=== PATIENT | female | born 2000 | race Caucasian/White ===

== ENCOUNTER 2020-11-07 21:22 | Emergency (ER) | payer OTHER, MEDICAID, SELFPAY ==
[2020-11-07 21:43] VITALS: BP 130/86; PULSE 80; RESP 14; TEMP 36.8; O2SAT 97; BMI 23.3
--- NOTE | 2020-11-07 21:56 | ED_ITS ---
HPI - General Adult General Chief complaint: Urogenital-Female Stated complaint: rt sided kidney pain Time Seen by Provider: 11/07/20 21:34 Source: patient Mode of arrival: Ambulatory Limitations: no limitations History of Present Illness HPI narrative: Patient is a 20-year-old female here for evaluation of right-si ded flank pain. States the symptoms started approximately 10-14 days ago but has been worsening over the past week. She denies any urinary symptoms. No history of kidney stone. No vaginal bleeding. No change in bowel habits. No rashes over the area. Today she did notice that she was getting right-sided abdominal pain and right lower quadrant pain does well. Some nausea but no vomiting. Has not tried anything for symptoms prior to arrival. No prior abdominal surgeries. She is not on control. She does state that it hurts to touch her right side/right flank also hurts to raise her right leg in the air. Has had a decreased appetite as well. Related Data Previous Rx's Medication Instructions Recorded norethindrone ac-eth estradiol 1 tab PO QDAY #1 pac 06/11/17 [08/07 ()] cephalexin 500 mg PO BID 7 Days #14 cap 11/08/20 Allergies Allergy/AdvReac Type Severity Reaction Status Date / Time morphine [MORPHINE] Allergy Unknown Unverified 10/27/17 12:28 Review of Systems Constitutional Constitutional: Denies fatigue, Denies fever(s), Denies headache(s) and Reports poor appetite Eyes Eyes: Denies change in vision ENT Ears, Nose, Mouth, and Throat: Denies headache(s) and Denies sore throat Cardiovascular Cardiovascular: Denies chest pain and Denies dyspnea Respiratory Respiratory: Denies dyspnea Gastrointestinal Gastrointestinal: Reports abdominal pain, Denies change in bowel habits, Reports nausea and Denies vomiting Genitourinary Genitourinary: Denies dysuria Genitourinary: Denies dysuria and Denies vaginal discharge Musculoskeletal Musculoskeletal: Denies arthralgias, Reports back pain (Right flank) and Denies myalgias Integumentary/Breasts Skin/Breast: Denies lesions and Denies rash Neurologic Neurologic: Denies behavioral changes and Denies headache(s) Psychiatric Psychiatric: Denies behavioral changes Endocrine Endocrine: Denies fatigue Hematologic/Lymphatic On Anticoagulants: No Allergic/Immunologic Allergic/Immunologic: Denies urticaria Patient History Medical History Healthy adult Social History Smoking Status: Never smoker Smoking Status: Never smoker Substance Use Type: marijuana Exam Initial Vital Signs Initial Vital Signs: Vital Signs Temperature 98.2 F 11/07/20 21:43 Pulse Rate 80 11/07/20 21:43 Respiratory Rate 14 11/07/20 21:43 Blood Pressure 130/86 11/07/20 21:43 Pulse Oximetry 97 11/07/20 21:43 Const General: cooperative, comfortable and well developed Limitations: mental status not altered HENMT Head: normal to inspection and normocephalic Resp Effort & Inspection: normal respiratory effort Auscultation: clear to auscultation bilaterally Cardio Rate: regular rate Rhythm: regular rhythm GI Inspection: non-distended Palpation: soft and tender (Right upper quadrant, right side and right lower quadrant) Other: Right adnexa tenderness Back/Spine/Pelvis Back: CVA tenderness right Skin Lesions: no lesions Rashes: no rashes Neuro General: patient alert, patient awake and patient oriented x3 Cognition: normal cognition Speech: speech normal Extrem General: normal to inspection and capillary refill normal Psych Appearance: grossly normal and well kempt Course Orders Ordered: ED Orders 11/07/20 21:52 Urine Culture Stat Urine Microscopic Stat 11/07/20 21:57 CT abdomen pelvis w con Stat 11/07/20 22:10 Complete Blood Count AUTO DIFF Stat Comprehensive Metabolic Panel Stat Lipase Stat 11/07/20 23:10 US pelvic complete Stat Discontinued Medications Hydrocodone Bitart/Acetaminophen (Hydrocodone/Acet 5/325 Tablet) 1 tab PO NOW ONE Stop: 11/07/20 23:11 Last Admin: 11/07/20 23:20 Dose: 1 tab Documented by: BRITTNEY Cephalexin HCl (Cephalexin 250 Mg Capsule) 500 mg PO NOW ONE Stop: 11/08/20 00:57 Last Admin: 11/08/20 01:00 Dose: 500 mg Documented by: BRITTNEY Sodium Chloride (Normal Saline 0.9%) 1,000 mls @ 1,000 mls/hr IV BOLUS ONE Stop: 11/07/20 22:55 Last Infusion: 11/07/20 23:20 Dose: 0 mls/hr Documented by: Admin: 11/07/20 22:16 Dose: 1,000 mls/hr Documented by: ROBERT Ketorolac Tromethamine (Ketorolac 60 Mg/2 Ml Vial) 30 mg IV NOW ONE Stop: 11/07/20 21:57 Last Admin: 11/07/20 22:17 Dose: 30 mg Documented by: ROBERT Vital Signs Vital signs: Vital Signs - 8 hr 11/07/20 21:43 Temperature 98.2 F Pulse Rate 80 Respiratory Rate 14 Blood Pressure 130/86 Pulse Oximetry 97 Medical Decision Making Lab Data Lab results reviewed: Yes I reviewed the patient's lab results. Result diagrams: 11/07/20 22:10 11/07/20 22:10 Labs: Lab Results 11/07/20 11/07/20 11/07/20 Range/Units 21:52 22:10 22:10 WBC 9.3 (4.5-11.0) X10^3/uL RBC 4.34 (4.0-5.2) X10^6/uL Hgb 12.7 (12.0-16.0) g/dL Hct 36.4 (36-46) % MCV 83.8 (80-100) fL MCH 29.3 (26-34) PG MCHC 34.9 (30-36) % RDW 13.6 (11.6-14.8) % Plt Count 250 (150-400) X10^3/uL Neut % (Auto) 61.2 (50-75) % Lymph % (Auto) 30.5 (25-40) % [place] % (Auto) 7.0 (3-14) % Eos % (Auto) 0.3 L (2-4) % Baso % (Auto) 1.0 (0-2) % Neut # (Auto) 5700 (5693-3142) /uL Lymph # (Auto) 2800 (8241-2642) /uL [place] # (Auto) 700 (0-900) /uL Eos # (Auto) 0 (0-450) /uL Baso # (Auto) 100 (0-100) /uL Sodium 140 (137-145) mmol/L Potassium 3.7 (3.4-5.1) mmol/L Chloride 105 (98-107) mmol/L Carbon Dioxide 26 (22-32) mmol/L BUN 11 (7-17) mg/dL Creatinine 0.54 (0.52-1.04) mg/dL Estimated GFR > 60.0 (>60) mL/min BUN/Creatinine Ratio 20.4 (6-22) Glucose 91 (70-100) mg/dL Calcium 9.3 (8.4-10.2) mg/dL Total Bilirubin 0.3 (0.2-1.3) mg/dL AST 22 (14-36) IU/L ALT 17 (<35) IU/L Alkaline Phosphatase 33 L (38-126) U/L Total Protein 7.2 (6.3-8.2) g/dL Albumin 4.6 (3.5-5.0) g/dL Globulin 2.6 (1.7-4.1) g/dL Albumin/Globulin Ratio 1.8 (1.0-2.8) Lipase 64 (23-300) U/L Urine RBC None seen (0-5/HPF) Urine WBC 10-30/hpf H (0-5/HPF) Ur Squamous Epith Cells 1-5 /hpf (0-5/HPF) Urine Bacteria Few (2-10) H (None) Ur Culture Indicated? Specimen cultured Point of Care Testing Test Results Negative Urine Dip Bedside Urine Glucose Negative Bedside Urine Bilirubin - Negative Bedside Urine Ketone - Negative Urine Specific [place] 1.015 Bedside Urine Occult Blood - Negative Bedside Urine pH 7.5 Bedside Urine Protein +/- 15 Bedside Urine Urobilinogen - Negative Bedside Urine Nitrite - Negative Bedside Urine Leukocytes + 70 Esterase Point of care testing: Point of Care Testing Test Results Negative Urine Dip Bedside Urine Glucose Negative Bedside Urine Bilirubin - Negative Bedside Urine Ketone - Negative Urine Specific [place] 1.015 Bedside Urine Occult Blood - Negative Bedside Urine pH 7.5 Bedside Urine Protein +/- 15 Bedside Urine Urobilinogen - Negative Bedside Urine Nitrite - Negative Bedside Urine Leukocytes + [address] scan - abdomen/pelvis: Radiologist's Impression: Complex 3.7 cm cystic abnormality right ovary with moderate fluid in the pelvis US - ENVIRONMENTAL SAMPLING TECHNICIAN: Radiologist's Impression: Free fluid in pelvis, otherwise unremarkable MDM Narrative Medical decision making narrative: Patient's urinalysis does have bacteria and leukocyte esterase which is somewhat concerning for urinary tract infection. She does not have any dysuria. She is afebrile. Her labs are unremarkable. CT scan of the abdomen shows a normal appendix but does have a complex 3.7 cm cystic abnormality in her right adnexa. A follow-up ultrasound was ordered which stated that her right ovary has a dominant follicle at is 1.9 cm however no cystic structure is seen. There is no evidence of ovarian torsion. She does have free fluid in the pelvis. A test is negative. She has no changes in skin over the area of discomfort. I do feel given her presentation that pyelonephritis is unlikely. There is no stranding noticed around the kidneys on the CT scan. Given the fact that there is no other explanation for her symptoms other than potentially urinary tract infection in do feel treating with antibiotics despite her lack of symptoms is warranted. A urine culture was pending at the time of discharge and she was instructed that we would contact her if we need to change antibiotics. She was given 1st dose here in the emergency department. A prescription for antibiotics was electronically transmitted to the pharmacy of her choice. She was given return precautions and follow-up instructions. She expressed understanding and agreement. Discharge Plan Departure Patient Disposition: Home Clinical Impression: Urinary tract infection, Acute right flank pain, Abdominal pain Instructions: DI for Urinary Tract Infection (UTI) Activity Restrictions/Additional Instructions: Take the antibiotics as directed. Recommend you contact your primary provider for a follow-up. Return to the emergency department for any new or worsening symptoms Prescriptions: New cephalexin 500 mg capsule 500 mg PO BID 7 Days Qty: 14 RF: 0 No Action norethindrone ac-eth estradiol [08/07 (21)] 1 MG/20 MCG tablet 1 tab PO QDAY Qty: 1 RF: 11 Referrals: Estela Coronado FNP-C [Primary Care Provider] -
--- NOTE | 2020-11-07 21:57 | DI.CT.S_ITS ---
PROCEDURE: CT ABDOMEN PELVIS W CON INDICATIONS: Right-sided abdominal pain to include flank and RLQ TECHNIQUE: After the administration of intravenous contrast, 5 mm thick sections acquired from the diaphragm to the symphysis. 5 mm coronal and sagittal reformats were acquired. For radiation dose reduction, the following was used: automated exposure control, adjustment of mA and/or kV according to patient size. COMPARISON: [facility], , US PELVIC COMPLETE, 11/07/2020, 23:45. FINDINGS: Lower thorax: The lung bases are clear. Heart size normal. No hiatal hernia. Liver: Normal in size and attenuation. No contour deformity present. Biliary system: No calcified cholelithiasis or pericholecystic inflammation. No intra or extrahepatic bile duct dilatation. Pancreas: Unremarkable without mass or inflammation evident. Spleen: Normal in size and density. Adrenals: Normal morphology and density. Reproductive system: 3.7 cm cystic structure noted in the right adnexa, possible ovarian cyst. Uterus unremarkable. Urinary system: Normal renal size and attenuation. No renal calculi, hydronephrosis, or solid mass present. Urinary bladder unremarkable. Gastrointestinal system: The bowel appears unremarkable with no evidence of bowel obstruction or inflammation. The stomach appears unremarkable. Appendix: Normal appendix identified. No evidence of acute appendicitis. Peritoneal spaces: No intra- or retroperitoneal adenopathy. No free air. Small amount of free fluid noted in the pelvis without encapsulation.. Vasculature: The IVC, aorta and iliac vasculature are unremarkable. Musculoskeletal: Normal bone mineralization. No acute fractures. Abdominal wall intact without evidence of ventral or inguinal hernias. IMPRESSION: Complex right adnexal cystic structure in the right adnexa with moderate free fluid can be further evaluated with ultrasound pelvis. Note: Final report is concordant with preliminary interpretation by [facility] Dictated by: Javier Figueroa M.D. on 11/08/2020 at 8:54 Approved by: Javier Figueroa M.D. on 11/08/2020 at 9:01
[2020-11-07 22:04] LABS: RBC Urine None Seen (0-5/HPF)
[2020-11-07 22:16] LABS: Bacteria Urine Few (2-10); Culture Indicated Urine Specimen Cultured; Squamous Epithelial Cell Urine 1-5 /HPF (0-5/HPF); WBC Urine 10-30/HPF (0-5/HPF)
[2020-11-07] MEDS: SODIUM CHLORIDE 0.9% 1,000 ML 1000 ML IV (22:16)
[2020-11-07] MEDS: KETOROLAC 60 MG/2 ML VIAL 30 MG IV (22:17)
[2020-11-07 22:19] LABS: Add Manual Diff / Slide Review NO; Basophils Absolute Auto 100 /uL (0-100); Eosinophils Absolute Auto 0 /uL (0-450); Eosinophils Percent Auto 0.3 % (2-4); Hematocrit 36.4 % (36-46); Hemoglobin 12.7 g/dL (12.0-16.0); Lymphocytes Absolute Auto 2800 /uL (1100-4500); Lymphocytes Percent Auto 30.5 % (25-40); Mean Corpuscular HGB Conc 34.9 % (30-36); Mean Corpuscular Hemoglobin 29.3 PG (26-34); Mean Corpuscular Volume 83.8 fL (80-100); Monocytes Absolute Auto 700 /uL (0-900); Neutrophils Absolute Auto 5700 /uL (1500-7000); Neutrophils Percent Auto 61.2 % (50-75); Platelet Count 250 X10^3/uL (150-400); Red Blood Cell Count 4.34 X10^6/uL (4.0-5.2); Red Cell Distribution Width 13.6 % (11.6-14.8); White Blood Cell Count 9.3 X10^3/uL (4.5-11.0)
[2020-11-07 22:29] LABS: Alanine Aminotransferase 17 IU/L (<35); Albumin 4.6 g/dL (3.5-5.0); Albumin Globulin Ratio 1.8 (1.0-2.8); Alkaline Phosphatase 33 U/L (38-126); Aspartate Aminotransferase 22 IU/L (14-36); BUN Creatinine Ratio 20.4 (6-22); Bilirubin Total 0.3 mg/dL (0.2-1.3); Blood Urea Nitrogen 11 mg/dL (7-17); Calcium 9.3 mg/dL (8.4-10.2); Carbon Dioxide 26 mmol/L (22-32); Chloride 105 mmol/L (98-107); Estimated Glomerular Filt Rate > 60.0 mL/min (>60); Globulin 2.6 g/dL (1.7-4.1); Glucose 91 mg/dL (70-100); HEMOLYSIS < 15 (0-50); Lipase 64 U/L (23-300); Potassium 3.7 mmol/L (3.4-5.1); Sodium 140 mmol/L (137-145); Total Protein 7.2 g/dL (6.3-8.2)
--- NOTE | 2020-11-07 23:10 | DI.US.S_ITS ---
PROCEDURE: US PELVIC COMPLETE INDICATIONS: Large cystic structure right ovary TECHNIQUE: Real-time scanning was performed of the pelvic organs, with image documentation. Additional endovaginal scanning was necessary due to incomplete visualization of the adnexal and endometrial structures by transabdominal scanning. COMPARISON: [facility], CT, CT ABDOMEN PELVIS W CON, 11/07/2020, 22:00. FINDINGS: Uterus: Uterus is normal in size at 8.3 x 4.9 x 3.8 cm. The endometrium measures 8.2 mm in combined thickness. Ovaries: Right ovary measures 4.2 x 2.9 x 3.1 centimeters. Left ovary measures 3.7 x 2.6 x 2.0 centimeters. There is a 1.9 x 1.6 x 1.4 centimeter simple appearing dominant follicle in the right ovary. Doppler evaluation demonstrates normal arterial and venous flow in the ovaries bilaterally. Other: Moderate amount of free fluid with internal debris noted adjacent to the adnexa. IMPRESSION: 1. Uterus is sonographically normal. 2. Ovaries are sonographically normal with simple right ovarian dominant follicle. 3. Moderate amount of complex fluid adjacent to the adnexa bilaterally which is nonspecific and of uncertain etiology. Dictated by: Tonya Yarbrough MD, PhD on 11/08/2020 at 8:45 Approved by: Tonya Yarbrough MD, PhD on 11/08/2020 at 8:50
[2020-11-07] MEDS: HYDROCODONE/ACET 5/325 TABLET 1 TAB PO (23:20)
[2020-11-08] MEDS: cephALEXin 250 MG CAPSULE 500 MG PO (01:00)
[2020-11-08 01:21] VITALS: BP 115/74; PULSE 54; O2SAT 100
== END 2020-11-08 01:29 | disposition home or self-care (01) ==
PROVIDERS: Emergency Provider Emergency Medicine; PCP Registered Nurse
DX: N39.0 Urinary tract infection, site not specified (principal); R10.9 Unspecified abdominal pain; R11.0 Nausea
CPT/HCPCS: 36415; 74177; 76830; 76856; 80053; 81003; 81015; 81025; 83690; 85025; 87077; 87086; 87147; 87186; 96361; 96374; 99284; 99285; J1885; Q9967

== ENCOUNTER 2021-03-18 23:16 | Emergency (ER) | payer OTHER, MEDICAID, SELFPAY ==
[2021-03-18 23:27] VITALS: BP 127/73; PULSE 98; RESP 18; TEMP 37.2
== END 2021-03-19 00:25 | disposition left against medical advice (07) ==
PROVIDERS: Emergency Provider Emergency Medicine; PCP Registered Nurse
DX: R52 Pain, unspecified (principal)
CPT/HCPCS: 99281